=== PATIENT | female | born 1990 | race Caucasian/White ===

== ENCOUNTER 2020-04-02 18:31 | Emergency (ER) | payer MEDICAID, SELFPAY ==
[2020-04-02 18:43] VITALS: BP 100/64; PULSE 77; RESP 18; TEMP 36.7; O2SAT 99
--- NOTE | 2020-04-02 19:14 | ED.GENADULT ---
HPI - General Adult General Chief complaint: Unspecified Stated complaint: needs work note Time Seen by Provider: 04/02/20 18:50 Source: patient Mode of arrival: ambulatory Limitations: no limitations History of Present Illness HPI narrative: Patient presents with chief complaint of needing a work note to return back to work. Patient states that she ate something bad yesterday and vomited 2-3 times so she was sent home early from work. Patient states that she has since not had any additional symptoms including fever chills nausea vomiting diarrhea abdominal pain cough shortness of breath loss of taste or smell or any other symptoms. Patient states that she was told that she needed a note to return back to work. Patient denies any known covert exposure or any other symptoms or concerns. Related Data Home Medications Medication Instructions Recorded Confirmed No Home Medications 04/02/20 04/02/20 Allergies Allergy/AdvReac Type Severity Reaction Status Date / Time lamotrigine [From Lamictal] Allergy Rash Verified 04/02/20 18:47 oxcarbazepine Allergy Rash Verified 04/02/20 18:47 [From Trileptal] tramadol AdvReac Seizure Verified 04/02/20 18:47 Review of Systems Review of Systems: Narrative: CONSTITUTIONAL: Denies fever, chills, or sweats. EYES: Denies visual changes, redness, or discharge. ENT: Denies rhinorrhea, congestion, sore throat, or otalgia. CARDIOVASCULAR: Denies chest pain, palpitations, or edema. RESPIRATORY: Denies cough or dyspnea. GASTROINTESTINAL: Denies abdominal pain, nausea, vomiting, or diarrhea. GENITOURINARY: Denies dysuria or hematuria. SKIN: Denies rash or itching. MUSCULOSKELETAL: Denies back pain, myalgia, or joint pain NEUROLOGIC: Denies headache, numbness, dizziness, or weakness. PSYCHIATRIC: Denies anxiety or depression. PMFSH Social History Social History Gender identity (if verbalized by the patient): Female Exam Narrative: Exam Narrative: GENERAL: Well-appearing, well-nourished. HEAD: Normocephalic, atraumatic. EYES: PERRLA and EOMI. ENT: Nares clear, no rhinorrhea or epistaxis. Mucous membranes moist. NECK: Supple. No adenopathy or masses. No vertebral tenderness or loss of ROM. CHEST: Clear to auscultation. No respiratory distress. No wheezes rales or rhonchi HEART: Regular rate and rhythm. Normal peripheral pulses. ABDOMEN: Soft, nontender, nondistended. EXTREMITIES: No acute changes in ROM. No edema. SKIN: Warm, dry, no rash. NEURO: No focal deficits. Alert and oriented x3. PSYCH: Normal mood and affect. Course Vital Signs Vital signs: Vital Signs Temperature 98.0 F 04/02/20 18:43 Pulse Rate 77 04/02/20 18:43 Respiratory Rate 18 04/02/20 18:43 Blood Pressure 100/64 04/02/20 18:43 Pulse Oximetry 99 04/02/20 18:43 Temperature 98.0 F 04/02/20 18:43 Pulse Rate 77 04/02/20 18:43 Respiratory Rate 16 04/02/20 19:35 Blood Pressure 100/64 04/02/20 18:43 Pulse Oximetry 99 04/02/20 18:43 Medical Decision Making MDM Narrative Medical decision making narrative: Patient denies any acute symptoms. Patient has been informed that if she has any symptoms of illness that she needs to abstain from working isolate herself. Patient states that she feels completely fine without any symptoms and believes that she had the 2-3 episodes of vomiting due to eating something bad. Patient directed to follow-up with her primary care or return to emergency department if she has any concerning symptoms. Vital Signs Vital Signs: Vital Signs Temperature 98.0 F 04/02/20 18:43 Pulse Rate 77 04/02/20 18:43 Respiratory Rate 18 04/02/20 18:43 Blood Pressure 100/64 04/02/20 18:43 Pulse Oximetry 99 04/02/20 18:43 Temperature 98.0 F 04/02/20 18:43 Pulse Rate 77 04/02/20 18:43 Respiratory Rate 16 04/02/20 19:35 Blood Pressure 100/64 04/02/20 18:43 Pulse Oximetry 99 04/02/20 18:43 Discharge Plan Discharg
[2020-04-02 19:35] VITALS: RESP 16
== END 2020-04-02 19:35 | disposition home or self-care (01) ==
PROVIDERS: Emergency Provider Emergency Medicine
DX: Z02.89 Encounter for other administrative examinations (principal)
CPT/HCPCS: 99281

== ENCOUNTER 2020-08-19 15:30 | Emergency (ER) | payer SELFPAY ==
[2020-08-19 15:46] VITALS: BP 120/75; PULSE 71; RESP 16; TEMP 36.5; O2SAT 100
[2020-08-19 16:07] LABS: Basophils Percent Auto 0.3 % (0.2-1.2); Eosinophils Absolute Auto 0.2 K/mm3 (0-0.3); Eosinophils Percent Auto 3.4 % (0-4.4); Hematocrit 38.1 % (37.0-47.0); Immature Granulocyte Absolute 0.02 K/mm3 (0.00-0.031); Immature Granulocyte Percent A 0.3 % (0-0.5); Lymphocytes Absolute Auto 1.75 K/mm3 (0.9-3.2); Lymphocytes Percent Auto 29.6 % (18.3-44.2); Mean Corpuscular HGB Conc 34.1 g/dl (32-36); Mean Corpuscular Hemoglobin 32.7 pg (26-34); Mean Platelet Volume 10.4 fl (7.4-10.4); Monocytes Absolute Auto 0.6 K/mm3 (0.1-0.6); Neutrophils Absolute Auto 3.3 K/mm3 (1.3-6.7); Neutrophils Percent Auto 56.4 % (45.5-73.1); Platelet Count Result 190 k/mm3 (150-375); Red Blood Count 3.97 M/mm3 (4.2-5.4); Red Cell Distribution Width 12.7 % (11.5-14.5); White Blood Count 5.9 K/mm3 (4.5-10.0)
[2020-08-19 16:15] LABS: Add Urine Microscopic? YES; Appearance Urine Clear (Clear); Bacteria Urine Trace /hpf; Bilirubin Urine Negative (Negative); Color Urine Yellow (Yellow); Glucose Urine UA Negative (Negative); Ketones Urine Trace mg/dL (Negative); Leukocyte Esterase Ur 1+ LEU/UL (Negative); Mucus Urine Heavy /lpf; Nitrate Urine Negative (Negative); Protein Urine 2+ mg/dL (Negative); Squamous Epithelial Cell Urine Few /hpf (Few); WBC Urine 31-50 /hpf
[2020-08-19 16:18] LABS: Anion Gap 6 mmol/L (8-16); Blood Urea Nitrogen 10 mg/dL (7-17); Calcium 9.5 mg/dL (8.4-10.2); Carbon Dioxide 25 mmol/L (22-30); Chloride 107 mmol/L (98-107); Estimated CRCL calculation 90 ml/min; Estimated Glomerular Filt Rate > 60; Glucose 80 mg/dL (65-105); Potassium 3.8 mmol/L (3.4-5.0); Sodium 138 mmol/L (137-145)
[2020-08-19 16:20] LABS: Blood Urine Negative (Negative); Specific Grav Ur 1.031 (1.001-1.035)
--- NOTE | 2020-08-19 16:39 | ED.ABDPAIN ---
HPI - Abdominal Pain General Chief Complaint: Urogenital-Female Stated Complaint: uti Time Seen by Provider: 08/19/20 16:35 Source: patient Mode of arrival: ambulatory Limitations: no limitations History of Present Illness HPI narrative: 29-year-old with no major medical problems here with complaints of dysuria and frequency since last few days. Early this morning she states she had chills but no fever denies any nausea or vomiting. MD elicited complaint: abdominal pain and flank pain (left) Pertinent past history: none Pain Consistency: constant Location: suprapubic Severity: mild Quality: cramping Radiation: L flank Exacerbating factors: nothing Associated symptoms: denies other symptoms Related Data Allergies Allergy/AdvReac Type Severity Reaction Status Date / Time lamotrigine [From Lamictal] Allergy Rash Verified 08/19/20 16:31 oxcarbazepine Allergy Rash Verified 08/19/20 16:31 [From Trileptal] tramadol AdvReac Seizure Verified 08/19/20 16:31 Review of Systems Review of Systems: All systems reviewed & are unremarkable except as noted in HPI and below Constitutional: Constitutional: Reports no additional constitutional complaints Eyes: Eyes: Reports no additional eye complaints ENT: Reports system reviewed and no additional complaints, except as documented Cardiovascular: Cardiovascular: Reports no additional cardiovascular complaints Respiratory: Respiratory: Reports no additional respiratory complaints Gastrointestinal: Gastrointestinal: Reports as per HPI Genitourinary: Genitourinary: Reports as per HPI Musculoskeletal: Musculoskeletal: Reports no additional musculoskeletal complaints Neurologic: Reports system reviewed and no additional complaints, except as documented PMFSH Social History Social History Gender identity (if verbalized by the patient): Female Exam Narrative: Exam Narrative: GENERAL: Well-appearing, well-nourished, and in no acute distress. HEAD: Normocephalic, atraumatic. EYES: PERRLA and EOMI. NECK: Supple. CHEST: Clear to auscultation. No respiratory distress. HEART: Regular rate and rhythm. No murmur heard. Normal peripheral pulses. ABDOMEN: Soft, nontender, nondistended, normal active bowel sounds.mild Left CVA tenderness EXTREMITIES: Normal range of motion. No edema. SKIN: Warm, dry, no rash. NEURO: No focal deficits. Alert and oriented x3. PSYCH: Normal mood and affect. Course Vital Signs Vital signs: Vital Signs Temperature 36.5 C 08/19/20 15:46 Pulse Rate 71 08/19/20 15:46 Respiratory Rate 16 08/19/20 15:46 Blood Pressure 120/75 08/19/20 15:46 Pulse Oximetry 100 08/19/20 15:46 Temperature 36.5 C 08/19/20 15:46 Pulse Rate 71 08/19/20 15:46 Respiratory Rate 16 08/19/20 15:46 Blood Pressure 120/75 08/19/20 15:46 Pulse Oximetry 100 08/19/20 15:46 MDM - Abdominal Pain MDM Narrative Medical decision making narrative: With a given history of dysuria obtain UA which showed UTI will place her on Cipro advised her to drink plenty of fluids finish her course of antibiotics and follow-up with the primary doctor Lab Data Result diagrams: 08/19/20 15:52 08/19/20 15:52 Labs: Lab Results 08/19/20 08/19/20 08/19/20 Range/Units 15:52 15:52 15:58 WBC 5.9 (4.5-10.0) K/mm3 RBC 3.97 L (4.2-5.4) M/mm3 Hgb 13.0 (12.0-15.0) g/dL Hct 38.1 (37.0-47.0) % MCV 96.0 (80-100) fl MCH 32.7 (26-34) pg MCHC 34.1 (32-36) g/dl RDW 12.7 (11.5-14.5) % Plt Count 190 (150-375) k/mm3 MPV 10.4 (7.4-10.4) fl Immature Gran % (Auto) 0.3 (0-0.5) % Neut % (Auto) 56.4 (45.5-73.1) % Lymph % (Auto) 29.6 (18.3-44.2) % Foster % (Auto) 10.0 H (2.6-8.5) % Eos % (Auto) 3.4 (0-4.4) % Baso % (Auto) 0.3 (0.2-1.2) % Lymph # (Auto) 1.75 (0.9-3.2) K/mm3 Foster # (Auto) 0.6 (0.1-0.6) K/mm3 Eos # (A
== END 2020-08-19 17:16 | disposition home or self-care (01) ==
PROVIDERS: Emergency Medicine; Emergency Provider Family Medicine
DX: N30.90 Cystitis, unspecified without hematuria (principal)
CPT/HCPCS: 36415; 80048; 81001; 81025; 85025; 87077; 87086; 87088; 87186; 99283